=== PATIENT | male | born 1960 | race Caucasian/White ===

== ENCOUNTER 2018-01-19 17:56 | Emergency (ER) | payer OTHER ==
--- NOTE | 2018-01-19 19:29 | EDPHY ---
H & P Time Seen by Provider: 01/19/18 18:11 HPI/ROS: This patient sustained a laceration to his right 5th finger at home while attempting to fix a bent while more blade. He explains that he had the blade of ice and was trying to read should back and proper shape but the by slipped causing his hand slipped causing his finger to be cut by the blade. He reports moderate pain in bleeding with controlled bleeding by direct pressure prior to arrival. He has abrasions to the adjacent 2nd and 3rd fingers as well. He denies any other complaints. Came to the emergency department by private vehicle for evaluation. ROS: Integumentary: No other complaints Musculoskeletal: No bony pain. No difficulty flexing the affected finger. Cardiovascular: No pallor to the affected finger Neuro: Patient reports baseline diminished sensation to the ulnar aspect of the affected finger from a injury as a teenager in which she sustained tendon and nerve injury and had to have a surgery. He appreciates no new neuro deficits in the affected finger 5 point ROS is otherwise negative. Past Medical/Surgical History: Right 5th finger tendon injury with surgical repair with residual nerve deficit. Smoking Status: Heavy smoker Physical Exam: Physical Exam Vital signs are normal. General: No acute distress Lungs: No respiratory distress. Cardiac: Brisk capillary refill is intact throughout. Pulses are 2+ and symmetric in the affected extremity. Skin: No rash or pallor. Extremities: Atraumatic normal except for right 5th finger Right 5th finger: Patient has a full-thickness laceration overlying the middle phalanx on the palmar aspect of the finger. The length of the laceration is 1.3 cm. There is a bit of nonviable macerated skin at the wound edge. The subcutaneous tissues evident but no tendon injury is evident on direct examination. No foreign bodies are appreciated on direct exam. There superficial abrasions to the adjacent 3rd and 4th fingers Neuro: Alert. Patient has a loss of 2 point discrimination to the ulnar aspect of the affected right 5th finger distal phalanx. He maintains 2 point discrimination on the radial aspect of that finger. The patient states this is baseline for him. No other neuro deficits are appreciated. Constitutional: Initial Vital Signs Temperature (C) 36.7 C 01/19/18 18:04 Heart Rate 81 01/19/18 18:04 Respiratory Rate 18 01/19/18 18:04 Blood Pressure 154/81 H 01/19/18 18:04 O2 Sat (%) 94 01/19/18 18:04 O2 Delivery Mode Room Air MDM/Departure - MDM Procedures: Digital block: After verbal consent, using a 50 50 mix of 0.5% Marcaine 2% plain lidocaine, 27 gauge needle, chlorhexidine scrub under sterile conditions- 3 injections were administered to the base of the affected finger, 8 mL with good effect. Patient tolerated this well. There were no complications. The wound is 1.3 cm in length described physical exam.. The wound was copiously irrigated with saline. The wound was explored for foreign bodies and none were found. The wound was prepped and draped in the normal sterile fashion. The edges were reapproximated using 4 0 Prolene, 4 interrupted sutures, 4 running sutures after mild debridement of the margin of the wound removing nonviable skin with tissue scissors. After suturing, good hemostasis and cosmesis. The patient tolerated the procedure well. There were no complications. Patient is placed in a tube gauze dressing by our tech. I counseled regarding wound care. ED Course/Re-evaluation: Discussion: Patient with uncomplicated finger laceration without evidence of foreign body, tendon injury. Patient has a pre-existing light touch sensory neuro deficit to the affected finger but no new neuro deficits. - Depart Disposition: Home, Routine, Self-Care Clinical Impression: Finger laceration Qualifiers: Encounter type: initial encounter Finger: little finger Damage to nail status: without damage Foreign body presence: without foreign body Laterality: right Qualified Code(s): S61.216A - Laceration without foreign body of right little finger without damage to nail, initial encounter Condition: Good Instructions: Finger Laceration (ED) Additional Instructions: Diagnosis: Finger laceration Plan: Keep the wound clean and dry for the next 2 days. Then clean daily with warm soapy water Ibuprofen Tylenol for pain as needed Return for suture removal in 10-12 days Return sooner if he develops redness or discharge. This Referrals: Chanell Estes [Primary Care Provider] - As per Instructions
[2018-01-19 19:40] VITALS: BP 126/73
== END 2018-01-19 19:40 | disposition home or self-care (01) ==
LOC: CED 17:56
PROC: 0HQFXZZ Repair Right Hand Skin, External Approach (ICD-10-PCS; principal; 2018-01-19)
DX: S61.216A Laceration without foreign body of right little finger without damage to nail, initial encounter (principal); F17.200 Nicotine dependence, unspecified, uncomplicated; W45.8XXA Other foreign body or object entering through skin, initial encounter; Y92.009 Unspecified place in unspecified non-institutional (private) residence as the place of occurrence of the external cause